=== PATIENT | female | born 1940 | race Caucasian/White ===

== ENCOUNTER → 2018-07-05 09:55 | Outpatient (CLI) | payer MEDICARE, SELFPAY ==
--- NOTE | 2018-07-05 10:00 | MM_ITS ---
MM Dig screening mamm BI w/CAD CAD Screening COMPARISON: Digital mammograms with CAD 02/05/2015 INDICATION: There is a history of previous lumpectomy right breast and there is a history of breast cancer patient maternal aunt. TECHNIQUE: Standard CC and MLO images were obtained. R2 CAD reviewed. FINDINGS: Moderate diffuse fiber glandular densities are seen in both breasts. The right breast is smaller than left and there is moderate diffuse skin thickening, has a been previous radiation therapy? There is a new suspicious ill-defined lesion left breast at the 6:00 position 8 cm from the nipple on the cc view and 10.6 cm from the nipple on MLO view. There are multiple suspicious somewhat amorphous microcalcifications within the ill-defined mass. Consider the patient return for ultrasound exam left breast felt determine the best approach for biopsy ultrasound versus stereotactic. There is a stable well-defined nodular density upper outer quadrant left breast which was seen previously. IMPRESSION: Markedly suspicious ill-defined mass deep within the left breast 6:00 position with multiple suspicious amorphous microcalcifications . Stable post lumpectomy and possibly radiotherapy changes right breast BI-RADS Category: 5 Highly Suggestive of Malignancy RECOMMENDED FOLLOW-UP: IMM - IMMEDIATE FOLLOW-UP RECOMMENDED (A letter has been sent to the patient regarding results of the study.)
== END ==
PROVIDERS: PCP Family Medicine; Visit Provider Family Medicine
DX: Z12.31 Encounter for screening mammogram for malignant neoplasm of breast (principal)
CPT/HCPCS: 77067

== ENCOUNTER → 2018-08-11 14:45 | Outpatient (CLI) | payer MEDICARE, SELFPAY ==
--- NOTE | 2018-08-11 14:53 | US_ITS ---
MM Dig mamm DX unilat LT CAD, US breast LT complete INDICATION: Follow-up abnormal mammogram ORDERING PHYSICIAN: Nnamdi Lujan PATIENT AGE: 78 years COMPARISON: 07/05/2018 TECHNIQUE: Mag views are obtained of the left breast FINDINGS: Suspicious clustered pleomorphic calcifications are present in the infra aspect of the left breast at the 6:00 region. Left breast ultrasound: There are scattered cysts present in the left breast. No sonographically suspicious abnormalities are apparent. At 3:00 there is a hypoechoic area which is nonspecific. A low with chest wall at 1 x 0.7 cm and may even represent fibroglandular tissue. Complex cyst is present at 6:00 near the nipple. An additional complex cyst is present at 9:00 near the nipple at 8 x 5 mm. Cluster small cysts are present at 11:00 and 10:00 at 5 mm, or millimeters, and 7 mm. Small nodes are present in the axilla. IMPRESSION: Suspicious left breast calcifications. Stereotactic biopsy is recommended. Multiple left breast cysts some of which are complex. 6 month follow-up suggested. BI-RADS Category: 4 Suspicious Abnormality-Biopsy Considered RECOMMENDED FOLLOW-UP: BIO - BIOPSY RECOMMENDED (A letter has been sent to the patient regarding results of the study.)
== END ==
PROVIDERS: PCP Family Medicine; Visit Provider Family Medicine
DX: N63.20 Unspecified lump in the left breast, unspecified quadrant (principal); R92.8 Other abnormal and inconclusive findings on diagnostic imaging of breast
CPT/HCPCS: 76641; 77065

== ENCOUNTER → 2018-09-21 09:49 | Outpatient (CLI) | payer MEDICARE, SELFPAY ==
--- NOTE | 2018-09-21 09:54 | MM_ITS ---
MM stereotactic loc LT, MM clip placement LT ORDERING PHYSICIAN: Sonido Coffey MD PATIENT AGE: 78 years Comparison: 07/05/2018, 08/11/2018 Limited focused H&P: HISTORY: Suspicious microcalcifications involving the 6:00 region of the left breast. PROCEDURE: The patient was given 1 mg of Xanax, Lortab 7.5 mg, and analgesia and minor sedation. The patient was placed on the stereotactic table and the abnormality at the 6:00 region of the left breast was localized in the most appropriate projection. The breast was prepped in the routine manner, with sterile prep and the overlying skin anesthetized. A 3 to 4 mm skin incision was performed and the 9 gauge sorus vacuum-assisted core biopsy needle was advanced to the region of the calcification. Pre- and post fire images were obtained. After adequate positioning relative to the calcifications was ensured, multiple biopsies were obtained in the region of the calcifications specifically. The core biopsies obtained were sent for specimen mammography. After the calcifications were indeed identified on the specimen mammogram, the procedure was terminated. The patient tolerated the procedure well without complications. A tiny titanium nonferromagnetic MicroMark was positioned through the mammotome needle into the biopsy site. 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 This is considered an adequate specimen and the procedure was terminated. IMPRESSION: Successful removal of described breast calcifications. Left BREAST MAMMOGRAM: Mild to defect is present at the 6:00 region of the left breast where a clip was placed. There is been removal of multiple calcifications in this region. There are calcifications which still persist.. A small MicroMark clip was inserted into the region of the calcifications. There is evidence of soft tissue changes in the region of the biopsy was soft tissue gas and edema. IMPRESSION: 1. Adequate placement of the MicroMark clip postbiopsy. 2. Postbiopsy changes within the left breast.
== END ==
PROVIDERS: PCP Family Medicine; Visit Provider Surgery
DX: R92.8 Other abnormal and inconclusive findings on diagnostic imaging of breast (principal); R92.1 Mammographic calcification found on diagnostic imaging of breast
CPT/HCPCS: 19081; 77065; 88305; 88360

== ENCOUNTER → 2021-11-02 09:03 | Outpatient (CLI) | payer MEDICARE, SELFPAY ==
--- NOTE | 2021-11-02 09:12 | MR_ITS ---
FINAL REPORT CLINICAL HISTORY: CHRONIC LBP. HX OF 2 PREVIOUS SURGERIES. PAIN RADIATES INTO BILATERAL HIPS. FINDINGS: Multiplanar MR imaging of the lumbar spine was performed without contrast. On the sagittal T2-weighted images, disc degeneration is seen throughout. There are endplate changes and postoperative changes of laminectomy at multiple levels. The vertebral alignment is normal. There is no evidence of fracture. No bony mass is identified. The conus is seen at approximately the L1 level and has an unremarkable appearance. L1-2: An annular bulge is present. Facet arthropathy and osteophytes are present. There is moderate right and mild left neural foraminal narrowing. L2-3: An annular bulge is present. Facet arthropathy and osteophytes are present. There is a left posterolateral disc protrusion with left lateral recess stenosis. There is moderate right and severe left neural foraminal narrowing. There is moderate central canal stenosis with the AP diameter of the thecal sac measuring 6 mm. L3-4: An annular bulge is present. Facet arthropathy and osteophytes are present. There is a central disc protrusion which indents the thecal sac. There is severe right and moderate left neural foraminal narrowing. L4-5: An annular bulge is present. Facet arthropathy and osteophytes are present. There is severe bilateral neural foraminal narrowing. L5-S1: An annular bulge is present. Facet arthropathy and osteophytes are present. There is a left foraminal disc protrusion with moderate right and severe left neural foraminal narrowing. IMPRESSION: Multilevel degenerative disc disease with if left lateral recess stenosis at L2-3, left posterolateral disc protrusion and moderate central canal stenosis. Central disc protrusion at C3-4 which indents the thecal sac. Severe, multilevel neural foraminal narrowing. Reviewed, Interpreted and Dictated by Sonido Schmitt III, MD Transcribed by Waleska Loyd Authenticated and [facility]
== END ==
PROVIDERS: PCP Family Medicine; Visit Provider Anesthesiology
DX: M54.50 Low back pain, unspecified (principal); M96.1 Postlaminectomy syndrome, not elsewhere classified; M51.37 Other intervertebral disc degeneration, lumbosacral region
CPT/HCPCS: 72148